=== PATIENT | male | born 1990 | race Caucasian/White ===

== ENCOUNTER 2020-02-21 16:56 | Emergency (ER) | payer OTHER ==
[~2020-02-21 16:56] MED LIST: MOTION SICKNESS25 MG PO; ZOFRAN ODT4 MG PO
[2020-02-21] MEDS ORDERED: MEDROL DOSEPAK 24 MG PO (21:13)
[2020-02-21] MEDS ORDERED: ZITHROMAX500 MG PO (21:13)
[2020-02-21] MEDS ORDERED: TORADOL 10 MG T10 MG PO (21:15)
== END 2020-02-21 21:20 | disposition home or self-care (01) ==
LOC: ER1 16:56
DX: U07.1 COVID-19 (principal); F17.220 Nicotine dependence, chewing tobacco, uncomplicated
CPT/HCPCS: 71045; 96372; 99283; J1100; J1885; U0002

== ENCOUNTER 2020-09-09 20:21 | Emergency (ER) | payer OTHER, MEDICARE ==
[~2020-09-09 20:21] MED LIST changes: +MEDROL DOSEPAK 24 MG PO; +TORADOL 10 MG T10 MG PO; +ZITHROMAX500 MG PO
[2020-09-09 22:26] LABS: BORDETELLA PARAPERTUSSIS Not Detected (Not Detectd); BORDETELLA PERTUSSIS Not Detected (Not Detectd); CHLAMYDIA PNEUMONIAE Not Detected (Not Detectd); CORONAVIRUS HKU1 Not Detected (Not Detectd); CORONAVIRUS NL63 Not Detected (Not Detectd); CORONAVIRUS OC43 Not Detected (Not Detectd); CORONOAVIRUS 229E Not Detected (Not Detectd); HUMAN METAPNEUMOVIRUS Not Detected (Not Detectd); HUMAN RHINOVIRUS/ENTEROVIRUS Not Detected (Not Detectd); INFLUENZA A Not Detected (Not Detectd); INFLUENZA B Not Detected (Not Detectd); MYCOPLASMA PNEUMONIAE Not Detected (Not Detectd); PARAINFLUENZA VIRUS 1 Not Detected (Not Detectd); PARAINFLUENZA VIRUS 2 Not Detected (Not Detectd); PARAINFLUENZA VIRUS 3 Not Detected (Not Detectd); PARAINFLUENZA VIRUS 4 Not Detected (Not Detectd); RESPIRATORY SYNCYTIAL VIRUS Not Detected (Not Detectd)
[2020-09-10 00:16] LABS: SARS-CoV-2 DETECTED (Not Detectd)
[2020-09-10] MEDS ORDERED: PROAIR HFA8.5 GM INH (01:26)
[2020-09-10] MEDS ORDERED: IBUPROFEN800 MG PO (01:26)
[2020-09-10] MEDS ORDERED: ONDANSETRON ODT4 MG SL (01:26)
== END 2020-09-10 01:58 | disposition home or self-care (01) ==
LOC: ER1 20:21
PROVIDERS: Physician Assistant Medical
DX: U07.1 COVID-19 (principal)
CPT/HCPCS: 71045; 87081; 87633; 87880; 99283